=== PATIENT | female | born 1955 | race Caucasian/White ===

== ENCOUNTER 2019-09-30 16:47 | Emergency (ER) | payer OTHER, SELFPAY ==
--- NOTE | ~2019-09-30 | XR_ITS ---
EXAMINATION: XR chest 2V 09/30/2019 17:40 INDICATION: Left-sided chest pain and shortness of breath PROCEDURE: 2 view chest COMPARISON: 04/27/2017 FINDINGS: The lungs are clear. The cardiomediastinal silhouette is within normal limits. The lungs a re hyperinflated which is consistent with, but not diagnostic of chronic obstructive pulmonary diseas e. There are no pleural effusions. There is no pneumothorax suspected. IMPRESSION: 1: NO ACUTE CARDIOPULMONARY DISEASE. Reviewed, dictated and finalized at location A. ONTOLOGICAL HELPER
--- NOTE | 2019-09-30 16:49 | ECG_ITS ---
Measurements Intervals [place] Rate: 82 P: 75 NC: 164 QRS: 2 QRSD: 97 T: 63 QT: 368 QTc: 432 Interpretive Statements SINUS RHYTHM RIGHT ATRIAL ENLARGEMENT POSSIBLE LEFT ATRIAL ENLARGEMENT BORDERLINE ST-T WAVE ABNORMALITY- LATERAL LEADS BASELINE ARTIFACT- I, II BORDERLINE ECG Electronically Signed On 10-01-2019 7:12:08 FORGESMITH by Jose Martin Ernandez D.O.
[2019-09-30 16:50] VITALS: BP 153/109; PULSE 80; RESP 26; TEMP 37.3; O2SAT 97
[2019-09-30] MEDS: ACETAMINOPHEN 325 MG TABLET 650 MG PO (17:25)
[2019-09-30 17:31] LABS: Basophils Percent Auto 1.1 % (0.0-1.0); Eosinophils Absolute Auto 0.29 K/mm3 (0.02-0.50); Eosinophils Percent Auto 3.2 % (1.0-6.0); Hematocrit 38.5 % (35.0-49.0); Immature Granulocyte Absolute 0.04 K/mm3 (0.00-0.00); Immature Granulocyte Percent A 0.4 % (0.0-0.0); Lymphocytes Percent Auto 28.6 % (18.0-42.0); Mean Corpuscular HGB Conc 33.8 g/dL (32.0-36.0); Mean Corpuscular Hemoglobin 31.5 pg (27.0-31.0); Mean Corpuscular Volume 93.2 fL (78.0-102.0); Monocytes Absolute Auto 0.82 K/mm3 (0.10-0.90); Neutrophils Absolute Auto 5.2 K/mm3 (1.7-7.2); Neutrophils Percent Auto 57.7 % (50.0-70.0); Platelet Count Result 211 K/mm3 (150-420); Red Blood Count 4.13 M/mm3 (4.20-5.40); Red Cell Distribution Width 12.4 % (11.6-14.4); White Blood Count 9.1 K/mm3 (4.8-10.8)
[2019-09-30 17:39] VITALS: BP 159/82; PULSE 82; RESP 26; O2SAT 97
--- NOTE | 2019-09-30 17:39 | PC.NURSE ---
Returned from radiology. Continues to c/o intermittent L lateral chest pain that is sharp. Also c/o L arm heaviness.
[2019-09-30 17:45] LABS: Prothrombin Time 10.1 Seconds (9.64-11.0)
[2019-09-30 17:47] LABS: BNP 45.5 pg/mL (0-100)
[2019-09-30 17:55] LABS: Alanine Aminotransferase 19 U/L (14-59); Albumin Level 3.7 g/dL (3.4-5.0); Alkaline Phosphatase 87 U/L (46-116); Aspartate Amino Transferase 20 U/L (15-37); Bilirubin,Total 0.3 mg/dL (0.00-1.00); Blood Urea Nitrogen 16 mg/dL (7-18); Calcium 9.3 mg/dL (8.5-10.1); Carbon Dioxide 26 mmol/L (21-32); Chloride 100 mmol/L (98-108); Creatine Kinase 55 U/L (26-192); Estimated CRCL calculation 42 ml/min; Estimated Glomerular Filt Rate > 60; Glucose 95 mg/dL (70-99); Magnesium 2.1 mg/dL (1.8-2.4); Osmolality Calculated 283 mOsm/kg (285-295); Sodium 136 mmol/L (136-145); Thyroid Stimulating Hormone 1.45 uIU/mL (0.36-3.74); Total Protein 7.1 g/dL (6.4-8.2)
[2019-09-30 17:58] LABS: Troponin I < 0.02 ng/mL (0.00-0.056)
[2019-09-30 18:12] VITALS: BP 146/90; PULSE 77; RESP 24; O2SAT 96
--- NOTE | 2019-09-30 18:12 | PC.NURSE ---
Resting with family at bedside. No change in condition. Will continue to observe.
[2019-09-30] MEDS: ONDANSETRON HCL ODT 4 MG TABLET SUBLINGUAL (18:45)
--- NOTE | 2019-09-30 19:05 | PC.NURSE ---
c/o headache at this time. Dr Ovalles aware.
[2019-09-30 19:14] VITALS: BP 104/65; PULSE 70; RESP 22; O2SAT 98
--- NOTE | 2019-09-30 19:15 | ED.GENADULT ---
HPI - General Adult General Chief complaint: Chest Pain Stated complaint: chest pain Time Seen by Provider: 09/30/19 17:00 Mode of arrival: ambulatory Limitations: no limitations History of Present Illness HPI narrative: Liat chaves is a 64-year-old female patient. She comes ambulatory to the emergency room. A daughter is with her. she states that she has been sick for 2 weeks. She has had some wake chest discomfort. She has been feeling weak. She is very anxious. She has occasional nausea and occasional shortness of breath. She has no cough or fever. She has a history of aortic valve replacement with a pig valve. This was done at [facility] in [place]. This was done 6 years ago. It was for aortic stenosis. 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 Her family physician is Dr. Gonzalez. She has history of anxiety and hypertension. She takes Xanax 1 mg twice a day and labetalol 25 mg twice a day. Her other surgeries include 5 C-sections, oral surgery, right forearm surgery for a complex laceration. She has had right hip fracture surgery also done in the [place]. MD complaint: Weakness, anxiety, chest discomfort Onset (ago): week(s) ( 2 weeks) Location: chest ( she says that the chest pain is actually pain from the sternal wires which are just under the skin and palpable and palpation of these is slightly tender. She is very skinny. Her weight is 44 kg) Radiation: non-radiation Severity: mild Pain Consistency: intermittent Exacerbating factors: other ( palpation of the sternal wires is somewhat painful) Associated symptoms: other ( see HPI narrative) Treatments prior to arrival: none Related Data Home Medications Medication Instructions Recorded Confirmed albuterol sulfate 2 puff INHALATION Q4-6H PRN 09/30/19 09/30/19 alprazolam 1 mg PO BID PRN 09/30/19 09/30/19 carvedilol 6.25 mg PO BID 09/30/19 09/30/19 Allergies Allergy/AdvReac Type Severity Reaction Status Date / Time aspirin Allergy Hypotension Verified 09/30/19 17:20 ketorolac [From Toradol] Allergy Rash Verified 09/30/19 17:08 Review of Systems Review of Systems: All systems reviewed & are unremarkable except as noted in HPI and below Constitutional: Constitutional: Reports as per HPI, Denies chills and Denies fever(s) Eyes: Eyes: Reports as per HPI, Denies no additional eye complaints and Denies change in vision ENT: Reports system reviewed and no additional complaints, except as documented, Denies dysphagia, Denies dizziness, Denies nasal congestion and Denies sore throat Cardiovascular: Cardiovascular: Reports as per HPI, Reports chest pain, Denies rapid heart rate, Denies radiating jaw, neck or arm pain and Denies slow heart rate Respiratory: Respiratory: Reports as per HPI, Denies chest congestion, Denies cough, Reports dyspnea and Denies wheezing Gastrointestinal: Gastrointestinal: Reports as per HPI, Denies abdominal pain, Denies diarrhea and Reports nausea Genitourinary: Genitourinary: Reports as per HPI, Denies hematuria, Denies dysuria and Denies flank pain Musculoskeletal: Musculoskeletal: Reports no additional musculoskeletal complaints and Denies back pain Integumentary/Breasts: Skin/Breast: Reports system reviewed and no additional complaints, except as docu, Denies erythema and Denies rash Neurologic: Reports as per HPI, Denies vertigo, Denies syncope, Reports headache(s), Denies focal weakness, Denies numbness and Reports weakness Psychiatric: Psychiatric: Reports as per HPI and Reports anxiety Endocrine: Endocrine: Reports as per HPI, Denies polydipsia and Denies polyuria Hematologic/Lymphatic: Hematologic/Lymphatic: Reports no additional hematologic/lymphatic complaints, Denies easy bleeding and Denies easy bruising Allergic/Immunologic: Allergic/Immunologic: Reports as per HPI, Denies lip swelling and Denies tongue swelling [facility] Past Medical History Medical History (Updated 09/30/19 @ 19:31 by Seng Hawkins
--- NOTE | 2019-09-30 19:20 | PC.NURSE ---
After administering Delta 5/325 as ordered pt informed this RN that she had taken a dose of her Alprazolam 1mg tab while here in ER. States well it is my medicine so I can take it whenever . Instructed pt that in the future she needs to ask staff prior to taking home medication while in the ER/hospital as it may interfere with medication she has received during her care.
== END 2019-09-30 19:35 | disposition home or self-care (01) ==
PROVIDERS: Emergency Provider Surgery; PCP Family Medicine
DX: R07.9 Chest pain, unspecified (principal); F41.9 Anxiety disorder, unspecified
CPT/HCPCS: 36415; 71046; 80053; 82550; 82553; 83735; 83880; 84443; 84484; 85025; 85610; 85730; 93005; 99283; 99284; A9270

== ENCOUNTER 2020-10-11 05:34 | Emergency (ER) | payer OTHER, SELFPAY ==
--- NOTE | ~2020-10-11 | XR_ITS ---
EXAMINATION: XR ribs LT 2V DATE: 10/11/2020 06:41 INDICATION: Left rib injury. TECHNIQUE: A frontal view of the chest on 2 radiographs and 3 views of the left ribs were obtained. COMPARISON: Chest 2 views 09/30/2019, CT abdomen and pelvis 04/27/2017 FINDINGS: Calcified left lung nodules and calcified left hilar lymph nodes are consistent with old gr anulomatous disease. No pleural effusion or pneumothorax. The heart size is normal. There are changes of aortic valve replacement. There is no acute rib fracture. IMPRESSION: 1. No acute rib fracture. Reviewed, dictated and finalized at location A. BARREL FINISHER IMPRESSION: 1. No acute rib fracture.
[2020-10-11 05:35] VITALS: BP 113/75; PULSE 86; RESP 20; TEMP 36.6; O2SAT 98
--- NOTE | 2020-10-11 05:56 | ED.FALL ---
HPI - Fall General Chief Complaint: Fall Stated Complaint: pain Source: patient Mode of arrival: EMS Limitations: no limitations History of Present Illness HPI Narrative: this is a 65-year-old female that presents after she sustained a fall after she got out of bed to go to the bathroom and tripped and hit the left side of her her ribs that occurred yesterday at 4:30 a.m. in the morning apparently had pain but was doing well all day took some Tylenol and she has gabapentin that she takes for fibromyalgia that she took no pain relief, went to bed this evening woke up with some more pain in the left side of her ribs and called EMS who presented to our hospital. Patient currently rates her pain at a 10/10, with no shortness of breath there is pain with deep inspiration and with palpation, with no bruising of visualized there is some mild swelling in the left lower anterior rib area. The patient has a history of open heart surgery for aortic stenosis and has a valve replacement with a pig valve. History of COPD, hypertension and fibromyalgia otherwise there is no fever or chills no chest pain no shortness of breath no back pain. Patient did not lose consciousness did not hit her head currently no headaches no blurry vision no nausea vomiting. complaint: fall Onset (ago): day(s) Fall from: standing Fall witnessed: no Place fall occurred: home Loss of consciousness: none Prolonged down time: no Symptoms prior to fall: none Context: tripped/slipped Location of injury: other ( Ribs on the left) Related Data Home Medications Medication Instructions Recorded Confirmed albuterol sulfate 2 puff INHALATION Q4-6H PRN 09/30/19 10/11/20 alprazolam 1 mg PO BID PRN 09/30/19 10/11/20 carvedilol 6.25 mg PO BID 09/30/19 10/11/20 albuterol sulfate [Ventolin HFA] 2 puff INHALATION PRN PRN 10/11/20 10/11/20 cyclobenzaprine 10 mg PO PRN PRN 10/11/20 10/11/20 gabapentin 200 mg PO DAILY 10/11/20 10/11/20 ondansetron 4 mg TRANSLINGUAL DIRECTED PRN 10/11/20 10/11/20 Allergies Allergy/AdvReac Type Severity Reaction Status Date / Time aspirin Allergy Hypotension Verified 09/30/19 17:20 ketorolac [From Toradol] Allergy Rash Verified 09/30/19 17:08 Review of Systems Review of Systems: All systems reviewed & are unremarkable except as noted in HPI and below PMFSH Past Medical History Medical History Anxiety Forearm laceration Hip fracture Hypertension Family History Family History Father , of old age No problems noted. Mother No problems noted. Social History Social History Smoking packs per day: 0.5 Smoking cigarettes per day: 10.0 Years smoked: 35 Smoking pack-years: 17.50 Smoking status: Current every day smoker Substance use: never Exam Const: General: no acute distress and alert Orientation/consciousness: patient oriented x3 HENMT: Head: normal to inspection Eyes: Conjunctivae: conjunctivae normal Pupils: Equal, round and reactive pupils present Neck: Neck: normal visual inspection, no lymphadenopathy and no meningeal signs Chest: Chest palpation & inspection: normal inspection of the chest Other: Left mid to lower rib pain with palpation Resp: Effort & Inspection: normal respiratory effort Auscultation: clear to auscultation bilaterally Cardio: Rate: regular rate Rhythm: regular rhythm GI: Auscultation: normal bowel sounds : General: Yes no CVA tenderness Back/Spine/Pelvis: Back: no CVA tenderness Skin: General skin exam: normal color Rashes: no rashes Neuro: General: patient oriented x3 and moves all extremities Extrem: General: normal to inspection and no pedal edema Psych: Mental Status: mental status grossly normal Affect: normal affect and Anxious affect present Attitude: cooperative
[2020-10-11] MEDS: MORPHINE SULFATE (*CRX) 4 MG/ML INJ IM (06:00)
[2020-10-11 06:26] VITALS: TEMP 37.1
[2020-10-11 06:51] VITALS: BP 127/75; PULSE 84; RESP 20; TEMP 36.6; O2SAT 98
--- NOTE | 2020-10-11 07:02 | PC.NURSE ---
pt waiting for ride from family member. placed in wheelchair and in lobby watching tv per pt request.
== END 2020-10-11 06:54 | disposition home or self-care (01) ==
PROVIDERS: Emergency Provider Emergency Medicine
DX: R07.81 Pleurodynia (principal)
CPT/HCPCS: 71100; 96372; 99283; J2270

== ENCOUNTER 2020-11-13 12:24 | Emergency (ER) | payer OTHER, SELFPAY ==
--- NOTE | ~2020-11-13 | CT_ITS ---
EXAMINATION: CT brain wo con, CT cervical spine wo con EXAM DATE: 11/13/2020 12:58 INDICATION: Frontal head injury. Neck pain. TECHNIQUE: Spiral CT of the head was performed without contrast. Axial, coronal and sagittal images were reviewed. Spiral CT of the cervical spine was performed without contrast. Axial images were rev iewed. Coronal and sagittal reformatted images were also reviewed. The dose-length product (DLP) fo r this examination was 605.33 (accession [id number]), 92.15 (accession [id number]) mGy-cm. T he exposure was tailored according to patient size, and iterative reconstruction (ASIR) was used as a dditional dose reduction technique. There is no prior study for comparison. FINDINGS: HEAD CT: There is no acute intraparenchymal hemorrhage. No evidence of intraparenchymal brain mass l esion. No evidence of acute infarction. There is no mass effect or midline shift. There is no obstru ctive hydrocephalus suspected. There are no extra-axial collections. There are no acute calvarial f ractures. The orbits are unremarkable. There is right frontal scalp contusion. Left mastoid effusio n. CERVICAL CT: Sternotomy wires. There is no evidence of acute cervical fracture. The odontoid process is intact. Pre-dens space is normal. Prevertebral soft tissue is normal. There are no soft tissue abnormalities identified. There is no disc space widening or traumatic vertebral body subluxation s uspected. There is advanced cervical disc disease. 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 Advanced bilateral uncovertebral joint arthropathy at mid cervical levels. A detailed level by level evaluation of spondylosis can be added as addendum if requested. IMPRESSION: 1. No acute intracranial findings or cervical fracture. 2. Right frontal scalp contusion. 3. Advanced cervical spondylosis. Reviewed, dictated and finalized at location B. MAKER IMPRESSION: 1. No acute intracranial findings or cervical fracture. 2. Right frontal scalp contusion. 3. Advanced cervical spondylosis.
[2020-11-13 12:30] VITALS: BP 153/103; PULSE 85; RESP 17; TEMP 36.9; O2SAT 94
--- NOTE | 2020-11-13 12:44 | ED.HEATRA ---
HPI - Head Injury General Chief complaint: Head Injury Stated complaint: hit head seeing double Time Seen by Provider: 11/13/20 12:35 Source: patient Mode of arrival: ambulatory Limitations: no limitations History of Present Illness HPI Narrative: Patient comes in after a fall in which she fell on her face, just prior to presentation. She has a hematoma on her left forehead above her eyebrow. She complains of a ongoing moderately severe headache and sore neck. Rest has not made this better. She says she is specifically hurting at the site of the hematoma. Complaint: head injury Onset (ago): minute(s) Mechanism of Injury: fall Place: outdoors Loss of Consciousness: no Location of injury: frontal Severity: moderate Severity scale (1-10): 5 Quality: sharp Radiation: none Other Injuries: none Associated symptoms: denies other symptoms Related Data Home Medications Medication Instructions Recorded Confirmed alprazolam 1 mg PO BID PRN 09/30/19 11/13/20 carvedilol 6.25 mg PO BID 09/30/19 11/13/20 albuterol sulfate [Ventolin HFA] 2 puff INHALATION PRN PRN 10/11/20 11/13/20 cyclobenzaprine 10 mg PO PRN PRN 10/11/20 11/13/20 gabapentin 200 mg PO DAILY 10/11/20 11/13/20 ondansetron 4 mg TRANSLINGUAL DIRECTED PRN 10/11/20 11/13/20 lisinopril 10 mg PO DAILY 11/13/20 11/13/20 Allergies Allergy/AdvReac Type Severity Reaction Status Date / Time aspirin Allergy Hypotension Verified 09/30/19 17:20 ketorolac [From Toradol] Allergy Rash Verified 09/30/19 17:08 Review of Systems Constitutional: Constitutional: Reports no additional constitutional complaints Eyes: Eyes: Reports no additional eye complaints ENT: Reports system reviewed and no additional complaints, except as documented Cardiovascular: Cardiovascular: Reports no additional cardiovascular complaints Respiratory: Respiratory: Reports no additional respiratory complaints Gastrointestinal: Gastrointestinal: Reports no additional gastrointestinal complaints Genitourinary: Genitourinary: Reports no additional female genitourinary complaints Musculoskeletal: Musculoskeletal: Reports no additional musculoskeletal complaints Integumentary/Breasts: Skin/Breast: Reports system reviewed and no additional complaints, except as docu Neurologic: Reports system reviewed and no additional complaints, except as documented Psychiatric: Psychiatric: Reports no additional psychiatric complaints Endocrine: Endocrine: Reports no additional endocrine complaints Hematologic/Lymphatic: Hematologic/Lymphatic: Reports no additional hematologic/lymphatic complaints Allergic/Immunologic: Allergic/Immunologic: Reports no additional allergic/immunologic complaints [facility] Past Medical History Medical History Anxiety Forearm laceration Hip fracture Hypertension Family History Family History Father , of old age No problems noted. Mother No problems noted. Social History Social History Smoking packs per day: 0.5 Smoking cigarettes per day: 10.0 Years smoked: 35 Smoking pack-years: 17.50 Smoking status: Current every day smoker Substance use: never Exam Const: General: no acute distress Orientation/consciousness: patient oriented x3 HENMT: Head: normal to inspection Ears: external ears normal and TM's normal bilaterally Mouth: Yes Normal oral and palatal mucosa present Throat: posterior oropharynx normal Eyes: Conjunctivae: conjunctivae normal Other: Funduscopic exam to both eyes is not remarkable. Neck: Neck: normal visual inspection and no lymphadenopathy Chest: Chest palpation & inspection: normal inspection of the chest Resp: Effort & Inspection: normal respiratory effort Auscultation: clear to auscultation bilaterally Cardio: Rate: regular rate Rhythm: regular r
[2020-11-13 13:42] VITALS: BP 140/97
== END 2020-11-13 13:45 | disposition home or self-care (01) ==
PROVIDERS: Emergency Provider Emergency Medicine; PCP Family Medicine
DX: S09.90XA Unspecified injury of head, initial encounter (principal); W19.XXXA Unspecified fall, initial encounter
CPT/HCPCS: 70450; 72125; 99282; 99284

== ENCOUNTER 2021-01-21 14:18 | Emergency (ER) | payer OTHER, SELFPAY ==
--- NOTE | ~2021-01-21 | XR_ITS ---
EXAMINATION: XR chest 2V DATE: 01/21/2021 15:12 INDICATION: Left chest pain. Shortness of breath. TECHNIQUE: Frontal and lateral views of the chest were obtained. COMPARISON: Chest radiographs 10/11/2020, chest 2 views 09/30/2019 FINDINGS: A calcified left lung nodule is consistent with old granulomatous disease. No pleural effus ion or pneumothorax. The heart size is normal. There are changes of aortic valve replacement. There i s a burst fracture in mid thoracic spine. IMPRESSION: 1. No acute cardiopulmonary disease. 2. Age indeterminant burst fracture in mid thoracic spine, worsened from 09/30/2019. Reviewed, dictated and finalized at location A. IMPRESSION: 1. No acute cardiopulmonary disease. 2. Age indeterminant burst fracture in mid thoracic spine, worsened from 020.
[2021-01-21 14:30] VITALS: BP 135/76; PULSE 98; RESP 14; TEMP 37.3; O2SAT 97
[2021-01-21] MEDS: KETOROLAC 30 MG/ML VIAL (*BKC) IM (15:13)
--- NOTE | 2021-01-21 15:29 | ED.URI ---
HPI - URI/Sore Throat General Chief Complaint: Upper Respiratory Infection Stated Complaint: Fever/L side chest pain Source: patient History of Present Illness HPI Narrative: this is a 65-year-old female with a history of COPD/chronic bronchitis recently started on some medicine antibiotics and steroids for bronchitis, patient has been complaining of left rib and upper back pain for the last week or so there has not any coughing no known injuries no fever chills no chest pain no abdominal pain no diarrhea constipation no nausea vomiting. Related Data Home Medications Medication Instructions Recorded Confirmed alprazolam 1 mg PO BID PRN 09/30/19 01/21/21 carvedilol 6.25 mg PO BID 09/30/19 01/21/21 albuterol sulfate [Ventolin HFA] 2 puff INHALATION PRN PRN 10/11/20 01/21/21 cyclobenzaprine 10 mg PO PRN PRN 10/11/20 01/21/21 gabapentin 200 mg PO DAILY 10/11/20 01/21/21 ondansetron 4 mg TRANSLINGUAL DIRECTED PRN 10/11/20 01/21/21 lisinopril 10 mg PO DAILY 11/13/20 01/21/21 azithromycin 250 mg PO DAILY 01/21/21 01/21/21 prednisone 20 mg PO DAILY 01/21/21 01/21/21 Allergies Allergy/AdvReac Type Severity Reaction Status Date / Time aspirin Allergy Hypotension Verified 09/30/19 17:20 ketorolac [From Toradol] Allergy Rash Verified 09/30/19 17:08 Review of Systems Review of Systems: All systems reviewed & are unremarkable except as noted in HPI and below PMFSH Past Medical History Medical History Anxiety Forearm laceration Hip fracture Hypertension Family History Family History Father , of old age No problems noted. Mother No problems noted. Social History Social History Smoking packs per day: 0.5 Smoking cigarettes per day: 10.0 Years smoked: 35 Smoking pack-years: 17.50 Smoking status: Current every day smoker Substance use: never Exam Const: General: no acute distress and alert Orientation/consciousness: patient oriented x3 HENMT: Head: normal to inspection and contusion Eyes: Conjunctivae: conjunctivae normal Pupils: Equal, round and reactive pupils present EOM: EOMs intact bilaterally Neck: Neck: normal visual inspection, no lymphadenopathy and no meningeal signs Chest: Chest palpation & inspection: normal inspection of the chest Resp: Effort & Inspection: normal respiratory effort Cardio: Rate: regular rate Rhythm: regular rhythm GI: GI Palp: Yes Soft to palpation Percussion: Yes normal to percussion Urinary Catheter: Urinary Catheter: patent and draining Back/Spine/Pelvis: Back: no CVA tenderness Skin: General skin exam: normal color Neuro: General: patient oriented x3 Extrem: Other: Mid upper back pain with some movement Psych: Mental Status: mental status grossly normal Course Course Emergency Course: patient received IM Toradol with some minimal relief of her discomfort reviewed x-ray findings which showed midthoracic burst fracture and described that she needs to discuss this with her primary care physician and possibly start on medication that can strengthen her bones. Vital Signs Vital signs: Vital Signs Temperature 37.3 C 01/21/21 14:30 Pulse Rate 98 01/21/21 14:30 Respiratory Rate 14 01/21/21 14:30 Blood Pressure 135/76 01/21/21 14:30 Pulse Oximetry 97 01/21/21 14:30 Temperature 37.3 C 01/21/21 14:30 Pulse Rate 98 01/21/21 14:30 Respiratory Rate 14 01/21/21 14:30 Blood Pressure 135/76 01/21/21 14:30 Pulse Oximetry 97 01/21/21 14:30 Critical Care Time Critical Care Time Critical Care Time: No Discharge Plan Discharge Clinical Impression: Burst fracture of fourth thoracic vertebra with routine healing Patient Disposition: Home, Self-Care Condition: Stable Instructions: Antibiotic Form, Vertebral Compress
[2021-01-21 15:44] VITALS: RESP 15; O2SAT 99
== END 2021-01-21 15:50 | disposition home or self-care (01) ==
PROVIDERS: Emergency Provider Emergency Medicine; PCP Family Medicine
DX: S22.041D Stable burst fracture of fourth thoracic vertebra, subsequent encounter for fracture with routine healing (principal)
CPT/HCPCS: 71046; 96372; 99283; J1885

== ENCOUNTER 2021-10-04 13:37 | Outpatient (CLI) | payer MEDICARE, SELFPAY ==
--- NOTE | ~2021-10-04 | XR_ITS ---
EXAMINATION:XR cervical spine 4-5V DATE: 10/04/2021 14:30 INDICATION: Neck pain TECHNIQUE: AP, lateral, lateral swimmers and odontoid views of the cervical spine are provided. COMPARISON: 11/13/2020 FINDINGS: There are 2 mm of unchanged retrolisthesis of C4 on C5. The odontoid is intact. No fracture is identified. The vertebral body heights are maintained. There is unchanged severe loss of interver tebral disc space height from C3-4 through C7-T1. Small degenerative osteophytes project from the ant erior endplates of multiple vertebral bodies. There is severe multilevel facet and uncovertebral join t osteoarthritis. Prevertebral soft tissues are normal. IMPRESSION: 1. Severe cervical spondylosis without acute findings or significant interval change. Reviewed, dictated and finalized at location B. ER SUPERVISOR IMPRESSION: 1. Severe cervical spondylosis without acute findings or significant interval jessee garcia
--- NOTE | ~2021-10-04 | DEXA_ITS ---
Bone Density Report Name: MARIANO ANDRADE Age: 66 Sex: Female Ethnicity: White Date of : 1955 Indication: postmenopausal; screening for osteoporosis; parental hip fracture; height loss; prior fracture; Referring Provider: ALEXIS, JAMYE Manzano Study: Bone densitometry was performed. Exam Date: October 04, 2021 Accession number: [id number] Bone Density: Region BMD T-score Z-score Classification AP Spine(L1-L4) 0.629 -3.8 -2.0 Osteoporosis Femoral Neck (Left) 0.446 -3.6 -2.1 Osteoporosis Total Hip (Left) 0.546 -3.2 -2.0 Osteoporosis World Health Organization criteria for BMD impression classify patients as: Normal (T-score at or above -1.0), Osteopenia (T-score between -1.0 and -2.5), or Osteoporosis (T-score at or below -2.5). 10-year Fracture Risk: FRAX not reported because: Some T-score for Spine Total or Hip Total or Femoral Neck at or below -2.5 Prior hip or vertebral fracture Clinical Information Provided by Patient: Have had a previous hip or vertebral fracture Has had a low trauma fracture Parent has had a hip fracture Smokes Has used the following medications: Vitamin D Patient maximum height was 62 Menopause Age: 43 No regular weight bearing exercise Does not regularly consume dairy products Drinks caffeinated beverages Onset of menses at age 17 Number of children 6 Impression: The patient has established osteoporosis, based on the Total Spine T-score and the existence of a prior fracture. The patient has risk factors, including: parental hip fracture, smoking, previous fracture. Discussion: HIGH RISK OF FRACTURE. BONE DENSITY IS UNDESIRABLY LOW AT ONE OR MORE SKELETAL SITES, CONSISTENT WITH POSTMENOPAUSAL OSTEOPOROSIS. This patient's lowest T-score, in a patient who has previously fractured, meets the World Health Organization's (WHO) criteria for severe osteoporosis. In untreated patients, the risk of osteoporotic fracture increases approximately two-fold for each 1.0 SD decrease in T-score. Low bone density is not the only risk factor for fracture; also consider factors such as patient's age, frailty or poor health, risk of falling, risk of injury, previous osteoporotic fracture, family history of osteoporosis, cigarette smoking, low body weight, etc. Not everyone with low bone mineral density has osteoporosis; osteomalacia and other metabolic bone disorders should also be considered. Patients who have osteoporosis should be evaluated for specific diseases and conditions (secondary causes) that may cause or contribute to bone loss. The [place] [employer] (AACE) and National Osteoporosis Foundation (NOF) recommend pharmacologic intervention for all postmenopausal women with a previous hip or vertebral fracture and a T-score in this range. The patient should follow a healthful lifestyle (good nutri
--- NOTE | ~2021-10-04 | XR_ITS ---
EXAMINATION: XR shoulder LT min 2V INDICATION: Left shoulder pain, history of torn rotator cuff TECHNIQUE: Four views of the left shoulder are obtained on five radiographs. COMPARISON: None FINDINGS: No fracture is identified. There is apparent slight cranial migration of the humeral head w ith respect to the glenoid which could reflect rotator cuff tear. 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 Calcified pulmonary nodules are consistent with old granu lomatous disease. There are changes of prior cardiac bowel surgery. IMPRESSION: 1. No acute osseous abnormality. Findings suggestive of rotator cuff tear. Reviewed, dictated and finalized at location B. [facility]
== END 2021-10-04 13:38 | disposition home or self-care (01) ==
LOC: CHSIMG 13:46
PROVIDERS: PCP Family Medicine; Visit Provider Nurse Practitioner Family
DX: M54.2 Cervicalgia (principal); M25.512 Pain in left shoulder; Z78.0 Asymptomatic menopausal state
CPT/HCPCS: 72050; 73030; 77080